=== PATIENT | male | born 1925 | race Caucasian/White ===

== ENCOUNTER → 2016-11-17 10:00 | Outpatient (CLI) | payer MEDICARE, BC ==
[2016-08-29 09:47] VITALS: BMI 30.7
[~2016-11-17 10:00] MED LIST: CALCIUM OYS SHE1 TAB PO; CARDURA4 MG PO; FISH OIL 1,0001 CA1; FLOMAX0.4 MG PO; GABAPENTIN100 MG; HYDROCODONE-APA1 TAB PO; KEFLEX500 MG PO; LIBRIUM 10 MG C10 MG PO; NORCO 7.5/325 T1 TA1 PO; PACERONE200 MG PO; PERCOCET 10/3251 TA1 PO; PERCOCET 5-3251 TAB PO; PRILOSEC20 MG PO; PROSCAR5 MG PO; TIROSINT100 MCG PO
== END | disposition home or self-care (01) ==
LOC: D.RAD 10:00
DX: M75.102 Unspecified rotator cuff tear or rupture of left shoulder, not specified as traumatic (principal)

== ENCOUNTER 2016-12-08 05:24 | Day surgery (SDC) | payer MEDICARE, BC ==
[2016-12-07 11:48] LABS: BASOPHILS 0.3 % (0.0-2.0); EOSINOPHILS 1.8 % (0-7); HEMATOCRIT 34.1 % (42.0-54.0); HEMOGLOBIN 10.5 g/dL (13.5-17.5); IMMATURE GRANULOCYTES 0.3 % (0-5); LYMPHOCYTES 22.6 % (15-50); MCH 27.9 pg (26.0-34.0); MCHC 30.8 g/dL (31.0-37.0); MCV 90.5 fL (80.0-100.0); MEAN PLATELET VOLUME 10.4 fL (7.4-10.4); MONOCYTES 9.4 % (2-11); NEUTROPHILS 65.6 % (40-80); PLATELET COUNT 181 10x3/uL (130-400); RBC 3.77 10x6/uL (4.20-6.10); RDW 14.9 % (11.5-14.5); WBC 6.1 10x3/uL (4.8-10.8)
[2016-12-07 11:57] LABS: ANION GAP 8.2 mmol/L (8-16); CALCIUM 8.5 mg/dL (8.5-10.1); CARBON DIOXIDE 31.2 mmol/L (21.0-32.0); CREATININE - SERUM 1.8 mg/dL (0.6-1.3); POTASSIUM - SERUM 4.4 mmol/L (3.5-5.1)
[2016-12-07 12:14] LABS: APTT 30.4 SECONDS (22.8-39.4); INR 1.03 (0.85-1.17); PROTIME 13.3 SECONDS (11.6-15.0)
[~2016-12-08] VITALS: Ht 172.7 cm; Wt 93.0 kg
[~2016-12-08 05:24] MED LIST changes: -FLOMAX0.4 MG PO; -PERCOCET 10/3251 TA1 PO
[2016-12-08 07:26] VITALS: Ht 172.7 cm; Wt 93.0 kg
[2016-12-08] MEDS ORDERED: FLOMAX0.4 MG PO (07:33)
[2016-12-08] MEDS ORDERED: PERCOCET 10/3251 TA1 PO (12:24)
--- NOTE | 2016-12-08 12:32 | NUR ---
VANCOMYCIN 1GM/250 CC NS INFUSING ON ARRIVAL TO PACU WITH 100CC LEFT TO COUNT
--- NOTE | 2016-12-08 13:00 | NUR ---
1245 BACK FROM LT SHOULDER ROTATOR CUFF SURGERY. RT SHOULDER DRESSING C/D/I SHOULDER ICED AND IN IMMOBILIZER SLINGSHOT. WIGGLES FINGERS.
--- NOTE | 2016-12-08 14:23 | NUR ---
1345 IV DC WITH CATHER TIP INTACT
--- NOTE | 2016-12-12 18:23 | OP ---
PATIENT NAME: ALFREDO DRIVER MEDICAL RECORD: [id number] :[birth year] LOCATION:[facility] ADMISSION DATE: SURGEON: ANNE BYRD MD DATE OF OPERATION: 12/08/2016 PREOPERATIVE DIAGNOSIS: Massive rotator cuff tear. POSTOPERATIVE DIAGNOSIS: Massive rotator cuff tear. PROCEDURES: 1. Rotator cuff repair. 2. Biceps tenodesis dissolving of the left shoulder. SURGEON: Anne Byrd MD ANESTHESIA: General. INTRAOPERATIVE COMPLICATIONS: None. SUMMARY OF PATHOLOGY AND FINDINGS: Previously placed fixation had pulled through the patient's rotator cuff. The rotator cuff supraspinatus had torn and retracted. It was amenable to debridement with plxy-re-iluz repair and a double row fixation along with tenodesis. OPERATIVE SUMMARY IN DETAIL: After obtaining the appropriate preoperative orthopedic surgery consents as well as anesthetic consultation, evaluation and clearance, the patient was brought to the operating room, placed on the operating room table in supine position. After adequate general laryngeal mask airway was administered, the patient was placed in the beach chair position. All pressure points were well padded. He was held firmly on the operating table using the vacuum pack suction system. Left upper extremity and shoulder were then prepped and draped in a routine sterile fashion. The arm was held in the [employer] Trimano arm holding device. Anterolateral approach was taken across the front of the acromion down to the central median raphe of the deltoid. This was divided. The rotator cuff tear was seen. Previously placed hardware that being a SwiveLock was removed along with FiberTape. At this point, serial and sequential mobilization of the rotator cuff was done. Adhesions were taken down in the superficial aspect of the rotator cuff as well as the inferior aspect of the rotator cuff to make sure that the rotator cuff muscle belly itself had good excursion. A bzae-km-viwp repair was then achieved with a baseball type stitch using #2 FiberWire. This was then followed up with a proximal unicortical biceps tenodesis. Having completed this, double row fixation medially and laterally resulted in excellent reapproximation of the rotator cuff back to the entire supraspinatus footprint. The wound was copiously irrigated at and this multiple points. The deltoid was reapproximated back to the acromion in an imbricated style suture [id number] with a transosseous Force Fiber. This was followed by a second type such suture. Lateral and deep superficial deltoid were reapproximated again with a #1 Vicryl. This was followed by #1 Vicryl and 2-0 Vicryl. For final closure, skin macy were utilized. Sterile dressings were applied along with the JumpStart dressing from [employer] to enhance healing and decrease bacteria colony count. The patient was awakened, taken to recovery room in stable condition. All final needle and sponge counts were correct. TRANSINT:[id number] Voice Confirmation ID: [id number] DOCUMENT ID: [id number] OPERATIVE REPORT [id number] ALFREDO DRIVER MD, ANNE BARRERA at 1823 CC: [id number] DICTATION DATE: 12/08/16 1303 AGRICULTURAL RESEARCH DIRECTOR: 12/08/16 1607 [facility] 12/08/[address] [address]
== END 2016-12-08 14:15 | disposition home or self-care (01) ==
LOC: D.OPS 05:24 → D.PAN 08:50 → D.OPS 09:00 → D.PAN 09:35 → D.OPS 09:45 → D.PAN 09:45 → D.OPS 14:15
PROVIDERS: Anesthesiology
DX: M75.122 Complete rotator cuff tear or rupture of left shoulder, not specified as traumatic (principal); M75.22 Bicipital tendinitis, left shoulder